=== PATIENT | female | born 1935 | race African-American/Black ===

== ENCOUNTER 2017-09-30 16:32 | Inpatient (IN) ==
[2017-09-30 17:50] LABS: ABG Base Excess 2.9 MMOL/L (-2.5-2.5); ABG HCO3 26.9 MMOL/L (20-26); ABG Oxygen Saturation 96.5 % (95-100); ABG PCO2 46.3 MM HG (35-48); ABG PH 7.395 (7.35-7.45); ABG PO2 84.8 MM HG (80-95); ABG TCO2 25.4 MMOL/L (23-27)
[2017-09-30 17:54] LABS: Apearance,Urine Slightly Hazy (Clear); Bacteria,Urine Occasional /HPF (Few); Bilirubin,Urine Negative (Negative); Blood, Urine Negative (Negative); Glucose,Urine (UA) Negative (Negative); Hyaline Casts,Urine 1 /LPF (0-3); Ketones,Urine Negative (Negative); Mucus,Urine Occasional /LPF (Occasional); Nitrite,Urine Negative (Negative); Protein,Urine 30 MG/DL; Squamous Epithelial Cell,Urine Occasional /HPF (0-10); Urine Color Yellow (Yellow); Urine Specific Gravity 1.011 (1.001-1.035); Urine Urobilinogen < 2.0 EU/DL (0.2-1.0); WBC,Urine 1 /HPF (0-6)
[2017-09-30 17:58] LABS: Basophils % 0.6 % (0.0-0.8); Eosinophils # 0.7 10*3/uL (0.0-0.87); Hematocrit 37.6 VOL% (35.7-47.0); Hemoglobin 11.2 GM/DL (12.0-16.0); Immature Granulocytes % 0.3 %; Immature Granulocytes Absolute 0.02 #; Mean Corpuscular HGB Conc 29.8 GM/DL (32-36); Mean Corpuscular Hemoglobin 24 PG (27-34); Mean Corpuscular Volume 80.9 FL (87-102); Mean Platelet Volume 10.5 FL (9.6-12.0); Monocytes # 0.5 10*3/uL (0.11-0.8); Monocytes % 7.9 % (1.7-12.7); Neutrophils # 4.5 10*3/uL (1.4-7.4); Neutrophils % 66.2 % (38.7-73.9); Platelet Count 285 T/CUMM (130-400); Red Blood Count 4.65 MC/CUMM (3.8-5.5); Red Cell Distribution Width 15.5 % (9.3-17.3); White Blood Count 6.8 T/CUMM (4-12)
[2017-09-30 18:09] LABS: INR 1.1; PT Patient Result 11.6 SECS
[2017-09-30 18:38] LABS: Albumin 3.2 G/DL (3.4-5.0); Bilirubin,Total 0.6 MG/DL (0.2-1.0); Calcium 9.2 MG/DL (8.5-10.1); Osmolality,Calculated 292.1 MOS/KG (273-304); Potassium 4.3 MMOL/L (3.5-5.1); Total Protein 7.7 G/DL (6.4-8.3); Troponin I Only 0.034 NG/ML (0.00-0.045)
[2017-09-30] MEDS ORDERED: FUROSEMIDE 40 MG/4 ML VIAL IV STA (20:06)
[2017-09-30] MEDS ORDERED: FUROSEMIDE 20 MG/2 ML VIAL ONE (20:15)
[2017-09-30] MEDS ORDERED: MORPHINE 4 MG/1 ML VIAL IV PRN (21:47)
[2017-09-30] MEDS ORDERED: GLUCAGON 1 MG VIAL IM PRN (21:47)
[2017-09-30] MEDS ORDERED: ENOXAPARIN 30 MG/0.3 ML SYRINGE SUBCUT SCH (21:47)
[2017-09-30] MEDS: DOCUSATE SODIUM 100 MG CAPSULE PO SCH (22:11)
[2017-09-30] MEDS: INSULIN REGULAR 100 UNIT/ML SUBCUT SCH (22:12)
[2017-10-01] MEDS: ONDANSETRON 4 MG/2 ML VIAL IV PRN (02:33)
[2017-10-01 05:43] LABS: Risk Ratio 2.31; VLDL CHOLESTEROL 14.4 MG/DL
[2017-10-01] MEDS: INSULIN REGULAR 100 UNIT/ML SUBCUT SCH ×4 (08:31→22:12)
[2017-10-01] MEDS: DOCUSATE SODIUM 100 MG CAPSULE PO SCH ×2 (08:57→22:09)
[2017-10-01] MEDS: PANTOPRAZOLE 40 MG TABLET PO SCH (08:57)
[2017-10-01] MEDS: FUROSEMIDE 40 MG/4 ML VIAL IV SCH ×2 (08:58→16:30)
[2017-10-01] MEDS: glyBURIDE 5 MG TABLET PO SCH (16:28)
[2017-10-01] MEDS: POTASSIUM CHLORIDE 10 MEQ TABLET PO SCH (16:28)
[2017-10-01] MEDS: APIXABAN 2.5 MG TABLET PO SCH (16:28)
[2017-10-01] MEDS: CARVEDILOL 25 MG TABLET PO SCH (16:29)
[2017-10-01] MEDS: ATORVASTATIN 80 MG TABLET PO SCH (22:09)
[2017-10-02 05:43] LABS: Basophils % 0.2 % (0.0-0.8); Eosinophils # 0.6 10*3/uL (0.0-0.87); Eosinophils % 8.8 % (0.00-10.9); Hematocrit 34.5 VOL% (35.7-47.0); Hemoglobin 10.3 GM/DL (12.0-16.0); Immature Granulocytes % 0.5 %; Immature Granulocytes Absolute 0.03 #; Mean Corpuscular HGB Conc 29.9 GM/DL (32-36); Mean Corpuscular Hemoglobin 25 PG (27-34); Mean Corpuscular Volume 82.1 FL (87-102); Mean Platelet Volume 10.9 FL (9.6-12.0); Monocytes # 0.7 10*3/uL (0.11-0.8); Monocytes % 10.3 % (1.7-12.7); Neutrophils # 4.1 10*3/uL (1.4-7.4); Neutrophils % 64.2 % (38.7-73.9); Platelet Count 263 T/CUMM (130-400); Red Cell Distribution Width 15.5 % (9.3-17.3); White Blood Count 6.4 T/CUMM (4-12)
[2017-10-02 05:50] LABS: Potassium 4.2 MMOL/L (3.5-5.1)
[2017-10-02 06:20] LABS: Elliptocytes 1+; Hypochromasia 2+; Macrocytosis 1+; Polychromasia 1+; Target Cells Slight
[2017-10-02] MEDS: INSULIN REGULAR 100 UNIT/ML SUBCUT SCH ×4 (08:10→20:55)
[2017-10-02] MEDS: CILOSTAZOL 50 MG TABLET PO SCH (08:51)
[2017-10-02] MEDS: sitaGLIPtin 100 MG TABLET PO SCH (08:51)
[2017-10-02] MEDS: DILTIAZEM CD 180 MG CAPSULE PO SCH (08:51)
[2017-10-02] MEDS: APIXABAN 2.5 MG TABLET PO SCH ×2 (08:52→16:16)
[2017-10-02] MEDS: CARVEDILOL 25 MG TABLET PO SCH ×2 (08:52→15:44)
[2017-10-02] MEDS: POTASSIUM CHLORIDE 10 MEQ TABLET PO SCH ×2 (08:52→16:16)
[2017-10-02] MEDS: glyBURIDE 5 MG TABLET PO SCH (08:52)
[2017-10-02] MEDS: DOCUSATE SODIUM 100 MG CAPSULE PO SCH ×2 (08:52→20:55)
[2017-10-02] MEDS: PANTOPRAZOLE 40 MG TABLET PO SCH (08:52)
[2017-10-02] MEDS: FUROSEMIDE 40 MG/4 ML VIAL IV SCH ×2 (08:54→16:19)
[2017-10-02] MEDS ORDERED: NON-FORMULARY MEDICATION (Pantoprazole Sodium [Protonix] 40 MG) PO SCH (09:00)
[2017-10-02] MEDS: ASPIRIN EC 81 MG TABLET PO SCH (09:36)
[2017-10-02] MEDS: ACETAMINOPHEN 325 MG TABLET PO PRN (10:44)
[2017-10-02] MEDS: ATORVASTATIN 80 MG TABLET PO SCH (20:55)
[2017-10-02] MEDS: ONDANSETRON 4 MG/2 ML VIAL IV PRN (20:56)
[2017-10-03] MEDS ORDERED: ALBUTEROL/IPRATROPIUM 3 ML NEB RESP TX PRN (03:42)
[2017-10-03 05:51] LABS: Calcium 8.8 MG/DL (8.5-10.1); Osmolality,Calculated 287.1 MOS/KG (273-304); Potassium 4.7 MMOL/L (3.5-5.1)
[2017-10-03] MEDS: DEXTROSE 50% 25 GM/50 ML VIAL IV PRN ×4 (06:10→22:01)
[2017-10-03] MEDS: INSULIN REGULAR 100 UNIT/ML SUBCUT SCH ×4 (07:12→22:00)
[2017-10-03] MEDS: FUROSEMIDE 40 MG/4 ML VIAL IV SCH ×2 (09:22→16:06)
[2017-10-03] MEDS: ASPIRIN EC 81 MG TABLET PO SCH (09:23)
[2017-10-03] MEDS: DOCUSATE SODIUM 100 MG CAPSULE PO SCH ×2 (09:23→22:01)
[2017-10-03] MEDS: CARVEDILOL 25 MG TABLET PO SCH ×2 (09:23→16:07)
[2017-10-03] MEDS: POTASSIUM CHLORIDE 10 MEQ TABLET PO SCH ×2 (09:23→16:07)
[2017-10-03] MEDS: PANTOPRAZOLE 40 MG TABLET PO SCH (09:23)
[2017-10-03] MEDS: DILTIAZEM CD 180 MG CAPSULE PO SCH (09:23)
[2017-10-03] MEDS: APIXABAN 2.5 MG TABLET PO SCH ×2 (09:24→16:07)
[2017-10-03] MEDS: sitaGLIPtin 100 MG TABLET PO SCH (09:24)
[2017-10-03] MEDS: CILOSTAZOL 50 MG TABLET PO SCH (09:24)
[2017-10-03] MEDS ORDERED: MAGNESIUM HYDROXIDE SUSP 30 ML UDCUP PO PRN (11:12)
[2017-10-03] MEDS ORDERED: TUBERCULIN SKIN TEST 0.1 ML SYRINGE INTRADERM ONE (15:30)
[2017-10-03] MEDS: ATORVASTATIN 80 MG TABLET PO SCH (22:01)
[2017-10-04] MEDS: DEXTROSE 50% 25 GM/50 ML VIAL IV PRN (02:23)
[2017-10-04 05:05] LABS: Calcium 8.8 MG/DL (8.5-10.1); Osmolality,Calculated 289.3 MOS/KG (273-304); Potassium 4.8 MMOL/L (3.5-5.1)
[2017-10-04] MEDS: INSULIN REGULAR 100 UNIT/ML SUBCUT SCH ×4 (08:16→21:39)
[2017-10-04] MEDS: FUROSEMIDE 40 MG/4 ML VIAL IV SCH ×2 (08:53→15:36)
[2017-10-04] MEDS: DILTIAZEM CD 180 MG CAPSULE PO SCH (10:04)
[2017-10-04] MEDS: DOCUSATE SODIUM 100 MG CAPSULE PO SCH ×2 (10:06→21:39)
[2017-10-04] MEDS: ACETAMINOPHEN 325 MG TABLET PO PRN (10:06)
[2017-10-04] MEDS: ASPIRIN EC 81 MG TABLET PO SCH (10:08)
[2017-10-04] MEDS: POTASSIUM CHLORIDE 10 MEQ TABLET PO SCH ×2 (10:08→15:36)
[2017-10-04] MEDS: CARVEDILOL 25 MG TABLET PO SCH ×2 (10:08→15:36)
[2017-10-04] MEDS: CILOSTAZOL 50 MG TABLET PO SCH (10:08)
[2017-10-04] MEDS: APIXABAN 2.5 MG TABLET PO SCH ×2 (10:09→15:36)
[2017-10-04] MEDS: PANTOPRAZOLE 40 MG TABLET PO SCH (10:09)
[2017-10-04] MEDS: sitaGLIPtin 100 MG TABLET PO SCH (10:16)
[2017-10-04] MEDS: ATORVASTATIN 80 MG TABLET PO SCH (21:39)
[2017-10-05 05:19] LABS: Basophils % 0.3 % (0.0-0.8); Eosinophils # 0.2 10*3/uL (0.0-0.87); Eosinophils % 1.5 % (0.00-10.9); Hemoglobin 10.4 GM/DL (12.0-16.0); Immature Granulocytes % 0.3 %; Immature Granulocytes Absolute 0.03 #; Lymphocytes # 1.1 10*3/uL (1.4-4.0); Lymphocytes % 10.1 % (21.3-54.2); Mean Corpuscular HGB Conc 29.7 GM/DL (32-36); Mean Corpuscular Hemoglobin 25 PG (27-34); Mean Corpuscular Volume 83.3 FL (87-102); Mean Platelet Volume 10.6 FL (9.6-12.0); Monocytes # 1.2 10*3/uL (0.11-0.8); Monocytes % 11.2 % (1.7-12.7); Neutrophils # 8.5 10*3/uL (1.4-7.4); Neutrophils % 76.6 % (38.7-73.9); Platelet Count 215 T/CUMM (130-400); Red Cell Distribution Width 15.3 % (9.3-17.3)
[2017-10-05 05:57] LABS: Calcium 8.7 MG/DL (8.5-10.1); Osmolality,Calculated 289.4 MOS/KG (273-304); Potassium 5.6 MMOL/L (3.5-5.1)
[2017-10-05 06:03] LABS: Band Neutrophils 3 % (0-10); Eosinophils 3 % (0-10); Hypochromasia 1+; Lymphocytes 4 % (20-55); Microcytosis Slight; Segmented Neutrophils 83 % (50-85); Total Cells Counted 100
[2017-10-05 06:04] LABS: Ovalocytes Slight; Platelet Estimate Normal
[2017-10-05] MEDS: POTASSIUM CHLORIDE 10 MEQ TABLET PO SCH ×2 (07:17→16:19)
[2017-10-05] MEDS: INSULIN REGULAR 100 UNIT/ML SUBCUT SCH ×4 (08:21→21:57)
[2017-10-05] MEDS: sitaGLIPtin 100 MG TABLET PO SCH (08:22)
[2017-10-05] MEDS: FUROSEMIDE 40 MG/4 ML VIAL IV SCH (08:43)
[2017-10-05] MEDS: DILTIAZEM CD 180 MG CAPSULE PO SCH (09:05)
[2017-10-05] MEDS: CILOSTAZOL 50 MG TABLET PO SCH (09:05)
[2017-10-05] MEDS: DOCUSATE SODIUM 100 MG CAPSULE PO SCH ×2 (09:05→21:58)
[2017-10-05] MEDS: APIXABAN 2.5 MG TABLET PO SCH ×2 (09:06→16:53)
[2017-10-05] MEDS: PANTOPRAZOLE 40 MG TABLET PO SCH (09:06)
[2017-10-05] MEDS: ASPIRIN EC 81 MG TABLET PO SCH (09:07)
[2017-10-05] MEDS: CARVEDILOL 25 MG TABLET PO SCH ×2 (09:07→17:03)
[2017-10-05 11:41] LABS: ABG Base Excess 4.8 MMOL/L (-2.5-2.5); ABG HCO3 28.8 MMOL/L (20-26); ABG Oxygen Saturation 97.7 % (95-100); ABG PCO2 65.3 MM HG (35-48); ABG PH 7.311 (7.35-7.45); ABG PO2 96.5 MM HG (80-95); ABG TCO2 30.1 MMOL/L (23-27)
[2017-10-05] MEDS: ATORVASTATIN 80 MG TABLET PO SCH (21:58)
[2017-10-06 05:13] LABS: Osmolality,Calculated 290.5 MOS/KG (273-304); Potassium 5.3 MMOL/L (3.5-5.1)
[2017-10-06] MEDS: INSULIN REGULAR 100 UNIT/ML SUBCUT SCH ×4 (08:13→20:44)
[2017-10-06] MEDS: POTASSIUM CHLORIDE 10 MEQ TABLET PO SCH ×2 (08:13→15:20)
[2017-10-06] MEDS: CARVEDILOL 25 MG TABLET PO SCH ×2 (08:52→16:05)
[2017-10-06] MEDS: ASPIRIN EC 81 MG TABLET PO SCH (08:52)
[2017-10-06] MEDS: CILOSTAZOL 50 MG TABLET PO SCH (08:52)
[2017-10-06] MEDS: APIXABAN 2.5 MG TABLET PO SCH ×2 (08:52→16:22)
[2017-10-06] MEDS: PANTOPRAZOLE 40 MG TABLET PO SCH (08:52)
[2017-10-06] MEDS: DOCUSATE SODIUM 100 MG CAPSULE PO SCH ×2 (08:52→20:44)
[2017-10-06] MEDS: DILTIAZEM CD 180 MG CAPSULE PO SCH (08:52)
[2017-10-06] MEDS: sitaGLIPtin 100 MG TABLET PO SCH (08:52)
[2017-10-06] MEDS: FUROSEMIDE 40 MG/4 ML VIAL IV SCH (10:05)
[2017-10-06] MEDS: ATORVASTATIN 80 MG TABLET PO SCH (20:44)
[2017-10-06 21:05] LABS: ABG Base Excess 4.9 MMOL/L (-2.5-2.5); ABG HCO3 28.8 MMOL/L (20-26); ABG Oxygen Saturation 96.5 % (95-100); ABG PCO2 61.6 MM HG (35-48); ABG TCO2 29.7 MMOL/L (23-27); Allen Test Positive
[2017-10-07 03:58] LABS: ABG Base Excess 5.1 MMOL/L (-2.5-2.5); ABG PH 7.393 (7.35-7.45); ABG TCO2 28.2 MMOL/L (23-27)
[2017-10-07] MEDS ORDERED: acetaZOLAMIDE 250 MG TABLET PO SCH (09:00)
[2017-10-07] MEDS: DOCUSATE SODIUM 100 MG CAPSULE PO SCH ×2 (09:01→21:08)
[2017-10-07] MEDS: DILTIAZEM CD 180 MG CAPSULE PO SCH (09:01)
[2017-10-07] MEDS: APIXABAN 2.5 MG TABLET PO SCH ×2 (09:01→16:14)
[2017-10-07] MEDS: CARVEDILOL 25 MG TABLET PO SCH ×2 (09:01→16:14)
[2017-10-07] MEDS: CILOSTAZOL 50 MG TABLET PO SCH (09:01)
[2017-10-07] MEDS: ASPIRIN EC 81 MG TABLET PO SCH (09:02)
[2017-10-07] MEDS: PANTOPRAZOLE 40 MG TABLET PO SCH (09:02)
[2017-10-07] MEDS: POTASSIUM CHLORIDE 10 MEQ TABLET PO SCH ×2 (09:02→16:05)
[2017-10-07] MEDS: sitaGLIPtin 100 MG TABLET PO SCH (09:02)
[2017-10-07] MEDS: INSULIN REGULAR 100 UNIT/ML SUBCUT SCH ×4 (09:03→21:31)
[2017-10-07] MEDS: FUROSEMIDE 40 MG/4 ML VIAL IV SCH (09:03)
[2017-10-07] MEDS: ATORVASTATIN 80 MG TABLET PO SCH (21:08)
[2017-10-08 04:02] LABS: Basophils % 0.5 % (0.0-0.8); Eosinophils % 14.8 % (0.00-10.9); Hematocrit 32.9 VOL% (35.7-47.0); Hemoglobin 10.1 GM/DL (12.0-16.0); Immature Granulocytes % 0.3 %; Immature Granulocytes Absolute 0.02 #; Lymphocytes # 0.9 10*3/uL (1.4-4.0); Lymphocytes % 13.4 % (21.3-54.2); Mean Corpuscular HGB Conc 30.7 GM/DL (32-36); Mean Corpuscular Hemoglobin 25 PG (27-34); Mean Corpuscular Volume 79.7 FL (87-102); Mean Platelet Volume 11.2 FL (9.6-12.0); Monocytes # 0.8 10*3/uL (0.11-0.8); Monocytes % 12.5 % (1.7-12.7); Neutrophils # 3.8 10*3/uL (1.4-7.4); Neutrophils % 58.5 % (38.7-73.9); Platelet Count 224 T/CUMM (130-400); Red Blood Count 4.13 MC/CUMM (3.8-5.5); Red Cell Distribution Width 15.3 % (9.3-17.3); White Blood Count 6.4 T/CUMM (4-12)
[2017-10-08 04:30] LABS: Calcium 8.6 MG/DL (8.5-10.1); Osmolality,Calculated 294.5 MOS/KG (273-304); Potassium 4.8 MMOL/L (3.5-5.1)
[2017-10-08 05:58] LABS: Band Neutrophils 1 % (0-10); Burr Cells Slight; Eosinophils 17 % (0-10); Giant Platelets Few; Hypochromasia Slight; Lymphocytes 10 % (20-55); Microcytosis Slight; Ovalocytes Slight; Platelet Estimate Adequate; Segmented Neutrophils 55 % (50-85); Total Cells Counted 100
[2017-10-08] MEDS: DOCUSATE SODIUM 100 MG CAPSULE PO SCH ×2 (09:11→21:34)
[2017-10-08] MEDS: DILTIAZEM CD 180 MG CAPSULE PO SCH (09:11)
[2017-10-08] MEDS: ASPIRIN EC 81 MG TABLET PO SCH (09:12)
[2017-10-08] MEDS: PANTOPRAZOLE 40 MG TABLET PO SCH (09:12)
[2017-10-08] MEDS: APIXABAN 2.5 MG TABLET PO SCH ×2 (09:12→16:25)
[2017-10-08] MEDS: CILOSTAZOL 50 MG TABLET PO SCH (09:12)
[2017-10-08] MEDS: CARVEDILOL 25 MG TABLET PO SCH ×2 (09:12→16:25)
[2017-10-08] MEDS: FUROSEMIDE 40 MG TABLET PO SCH ×2 (09:12→16:26)
[2017-10-08] MEDS: sitaGLIPtin 100 MG TABLET PO SCH (09:12)
[2017-10-08] MEDS: POTASSIUM CHLORIDE 10 MEQ TABLET PO SCH ×2 (09:12→16:26)
[2017-10-08] MEDS: INSULIN REGULAR 100 UNIT/ML SUBCUT SCH ×4 (09:26→21:53)
[2017-10-08] MEDS: ATORVASTATIN 80 MG TABLET PO SCH (21:34)
[2017-10-09 05:59] LABS: Basophils % 0.6 % (0.0-0.8); Eosinophils # 0.8 10*3/uL (0.0-0.87); Eosinophils % 14.2 % (0.00-10.9); Hematocrit 32.9 VOL% (35.7-47.0); Hemoglobin 10.1 GM/DL (12.0-16.0); Immature Granulocytes % 0.2 %; Immature Granulocytes Absolute 0.01 #; Lymphocytes # 0.9 10*3/uL (1.4-4.0); Lymphocytes % 16.2 % (21.3-54.2); Mean Corpuscular HGB Conc 30.7 GM/DL (32-36); Mean Corpuscular Hemoglobin 25 PG (27-34); Mean Platelet Volume 11.1 FL (9.6-12.0); Monocytes # 0.6 10*3/uL (0.11-0.8); Monocytes % 11.5 % (1.7-12.7); Neutrophils % 57.3 % (38.7-73.9); Platelet Count 238 T/CUMM (130-400); Red Blood Count 4.11 MC/CUMM (3.8-5.5); Red Cell Distribution Width 15.3 % (9.3-17.3); White Blood Count 5.3 T/CUMM (4-12)
[2017-10-09 06:23] LABS: Calcium 9.1 MG/DL (8.5-10.1); Osmolality,Calculated 298.3 MOS/KG (273-304); Potassium 4.6 MMOL/L (3.5-5.1)
[2017-10-09 06:57] LABS: Eosinophils 15 % (0-10); Hypochromasia 1+; Lymphocytes 12 % (20-55); Microcytosis Slight; Ovalocytes Slight; Platelet Estimate Adequate; Segmented Neutrophils 62 % (50-85); Total Cells Counted 100
[2017-10-09] MEDS: ASPIRIN EC 81 MG TABLET PO SCH (08:33)
[2017-10-09] MEDS: POTASSIUM CHLORIDE 10 MEQ TABLET PO SCH ×2 (08:33→16:11)
[2017-10-09] MEDS: DOCUSATE SODIUM 100 MG CAPSULE PO SCH ×3 (08:33→21:47)
[2017-10-09] MEDS: CILOSTAZOL 50 MG TABLET PO SCH (08:33)
[2017-10-09] MEDS: sitaGLIPtin 100 MG TABLET PO SCH (08:33)
[2017-10-09] MEDS: PANTOPRAZOLE 40 MG TABLET PO SCH (08:34)
[2017-10-09] MEDS: APIXABAN 2.5 MG TABLET PO SCH ×2 (08:34→16:11)
[2017-10-09] MEDS: CARVEDILOL 25 MG TABLET PO SCH ×2 (08:34→16:11)
[2017-10-09] MEDS: FUROSEMIDE 40 MG TABLET PO SCH ×2 (08:34→16:12)
[2017-10-09] MEDS: INSULIN REGULAR 100 UNIT/ML SUBCUT SCH ×4 (08:40→21:48)
[2017-10-09] MEDS: DILTIAZEM CD 180 MG CAPSULE PO SCH (08:56)
[2017-10-09] MEDS: POLYETHYLENE GLYCOL POWDER 17 GM PACK PO SCH (10:20)
[2017-10-09] MEDS: ATORVASTATIN 80 MG TABLET PO SCH (21:25)
[2017-10-10 05:14] LABS: Basophils % 0.5 % (0.0-0.8); Eosinophils # 0.8 10*3/uL (0.0-0.87); Eosinophils % 13.4 % (0.00-10.9); Hematocrit 32.9 VOL% (35.7-47.0); Hemoglobin 9.9 GM/DL (12.0-16.0); Immature Granulocytes % 0.2 %; Immature Granulocytes Absolute 0.01 #; Lymphocytes # 0.9 10*3/uL (1.4-4.0); Lymphocytes % 16.8 % (21.3-54.2); Mean Corpuscular HGB Conc 30.1 GM/DL (32-36); Mean Corpuscular Hemoglobin 24 PG (27-34); Mean Corpuscular Volume 80.8 FL (87-102); Mean Platelet Volume 10.6 FL (9.6-12.0); Monocytes # 0.6 10*3/uL (0.11-0.8); Monocytes % 11.1 % (1.7-12.7); Neutrophils # 3.2 10*3/uL (1.4-7.4); Platelet Count 243 T/CUMM (130-400); Red Blood Count 4.07 MC/CUMM (3.8-5.5); Red Cell Distribution Width 15.1 % (9.3-17.3); White Blood Count 5.6 T/CUMM (4-12)
[2017-10-10 05:37] LABS: Band Neutrophils 4 % (0-10); Eosinophils 17 % (0-10); Lymphocytes 21 % (20-55); Platelet Estimate Normal; Segmented Neutrophils 51 % (50-85); Total Cells Counted 100
[2017-10-10 05:44] LABS: Potassium 4.4 MMOL/L (3.5-5.1)
[2017-10-10] MEDS: INSULIN REGULAR 100 UNIT/ML SUBCUT SCH ×2 (07:49→12:15)
[2017-10-10] MEDS: POLYETHYLENE GLYCOL POWDER 17 GM PACK PO SCH (08:33)
[2017-10-10] MEDS: sitaGLIPtin 100 MG TABLET PO SCH (08:35)
[2017-10-10] MEDS: FUROSEMIDE 40 MG TABLET PO SCH (08:35)
[2017-10-10] MEDS: CARVEDILOL 25 MG TABLET PO SCH (08:35)
[2017-10-10] MEDS: CILOSTAZOL 50 MG TABLET PO SCH (08:35)
[2017-10-10] MEDS: POTASSIUM CHLORIDE 10 MEQ TABLET PO SCH (08:35)
[2017-10-10] MEDS: DILTIAZEM CD 180 MG CAPSULE PO SCH (08:35)
[2017-10-10] MEDS: ASPIRIN EC 81 MG TABLET PO SCH (08:36)
[2017-10-10] MEDS: PANTOPRAZOLE 40 MG TABLET PO SCH (08:36)
[2017-10-10] MEDS: APIXABAN 2.5 MG TABLET PO SCH (08:36)
[2017-10-10] MEDS: DOCUSATE SODIUM 100 MG CAPSULE PO SCH ×2 (08:36→09:41)
[2017-10-10 11:45] VITALS: BP 117/67
== END 2017-10-10 14:13 | DRG 291 ==
LOC: N.ED 16:32 → SUATTDRO 20:06 → N.EDINP 20:06 → N.TELEN 21:18
PROVIDERS: ATTEND Hospitalist